=== PATIENT | male | born 1960 | race Caucasian/White ===

== ENCOUNTER 2019-01-08 08:47 | Emergency (ER) | payer MEDICARE, BC ==
[~2019-01-08] VITALS: Ht 182.9 cm; Wt 97.5 kg
[2019-01-08] MEDS ORDERED: Percocet 5-3251 EACH PO (09:44)
== END 2019-01-08 09:55 | disposition home or self-care (01) ==
LOC: ER 08:47
DX: M79.645 Pain in left finger(s) (principal)
CPT/HCPCS: 99283